=== PATIENT | male | born 1960 | race Caucasian/White ===

== ENCOUNTER 2018-03-27 04:37 | Emergency (ER) | payer BC ==
[~2018-03-27] VITALS: Ht 190.5 cm; Wt 100.0 kg
[~2018-03-27 04:37] MED LIST: CHOLESTROL MED; MULTI-DAY VITA1 EACH PO; PRAVASTATIN SOD80 MG PO
[2018-03-27 05:00] LABS: APPEARANCE CLEAR ((CLEAR)); BILIRUBIN NEGATIVE; BLOOD SMALL; COLOR YELLOW ((YELLOW)); GLUCOSE (STRIP) NEGATIVE; KETONES NEGATIVE; LEUKOCYTES NEGATIVE; NITRITE NEGATIVE; PROTEIN (STRIP) NEGATIVE; UROBILINOGEN 0.2 MG/DL (0.2-1.0)
[2018-03-27 05:06] LABS: BACTERIA NONE SEEN /HPF; EPITHELIAL CELLS NONE SEEN /HPF; MUCUS TRACE /LPF; RED BLOOD CELLS 0-5 /HPF (0-5); UCUL ADDED? NO; WHITE BLOOD CELLS 0-5 /HPF (0-5)
[2018-03-27 05:19] LABS: HEMATOCRIT 42.3 % (38.0-50.0); HEMOGLOBIN 14.8 G/DL (12.5-16.6); MCH 31.4 PG (29.0-34.0); MCV 89.6 FL (86-99); PLATELET COUNT 217 K/uL (156-360); RBC DIS.WIDTH-CV 11.9 % (11.8-14.6); RBC DIS.WIDTH-SD 39.1 % (39-53); RED BLOOD COUNT 4.72 M/uL (4.00-5.50); WHITE BLOOD COUNT 14.3 K/uL (4.1-10.2)
[2018-03-27 05:31] LABS: CHLORIDE 108 mEq/L (99-109); POTASSIUM 4.2 mEq/L (3.7-5.4); SODIUM 141 mEq/L (136-147)
[2018-03-27 05:33] LABS: GLUCOSE 145 mg/dL (70-99)
[2018-03-27 05:37] LABS: CREATININE 1.8 mg/dL (0.6-1.3); GFR ESTIMATE (CALCULATED) 42 mL/min/ (58.99-99999); UREA NITROGEN (BUN) 21 mg/dL (9-23)
[2018-03-27] MEDS ORDERED: NORCO 5/3251 TABLET PO (05:43)
[2018-03-27] MEDS ORDERED: FLOMAX0.4 MG PO (05:43)
[2018-03-27] MEDS ORDERED: ZOFRAN4 MG PO (05:43)
[2018-03-27 07:13] VITALS: BP 132/75
== END 2018-03-27 07:16 | disposition home or self-care (01) ==
LOC: EME 04:37
DX: N20.1 Calculus of ureter (principal); D72.829 Elevated white blood cell count, unspecified; E78.5 Hyperlipidemia, unspecified; Z87.442 Personal history of urinary calculi
CPT/HCPCS: 74176; 80048; 81003; 85027; 99281; 99285; J1885; J2405; J7030